=== PATIENT | male | born 1980 | race Caucasian/White ===

== ENCOUNTER 2017-07-17 10:24 | Inpatient (IN) | payer OTHER ==
[2017-07-17 10:52] VITALS: BMI 30.1
--- NOTE | 2017-07-17 12:41 | HP ---
CIWA Score - CIWA Score Nausea/Vomitin (QUEZZY STOMACH) Muscle Tremors: 4-Moderate,w/Arms Extend Anxiety: 5 Agitation: 4-Moderately Restless Paroxysmal Sweats: 1-Minimal Palms Moist Orientation: 0-Oriented Tacttile Disturbances: 0-None Auditory Disturbances: 0-None Visual Disturbances: 0-None Headache: 0-None Present CIWA-Ar Total Score: 17 Admission ROS BHS - HPI Chief Complaint: WITHDRAWAL SX FROM XANAX Allergies/Adverse Reactions: Allergies Allergy/AdvReac Type Severity Reaction Status Date / Time Penicillins Allergy Severe Difficulty Verified 07/17/17 12:07 Breathing History of Present Illness: 37 Y/O MALE WITH A HX OF XANAX AND MARIJUANA DEPENDENCE SEEKING DETOX TX. FIRST TIME HERE. PT IS ON [facility] Exam Limitations: No Limitations - Ebola screening Have you traveled outside of the country in the last 21 days: No Have you had contact with anyone from an Ebola affected area: No Have you been sick,other than usual withdrawal symptoms: No Do you have a fever: No - Review of Systems Constitutional: Chills, Night Sweats, Changes in sleep EENT: reports: Tearing, Nose Congestion, Dental Problems (MISSING TEETH) Respiratory: reports: No Symptoms reported Cardiac: reports: Palpitations (DUE TO ANXIETY/STRESS) GI: reports: Constipated, Diarrhea, Nausea, Poor Appetite, Vomiting, Indigestion : reports: No Symptoms Reported Musculoskeletal: reports: Back Pain, Joint Pain, Muscle Pain Integumentary: reports: No Symptoms Reported Neuro: reports: Headache, Tremors, Unsteady Gait Endocrine: reports: No Symptoms Reported Hematology: reports: No Symptoms Reported Psychiatric: reports: Orientated x3, Anxious, Depressed Other Systems: Reviewed and Negative Patient History - Patient Medical History Hx Anemia: No Hx Asthma: No Hx Chronic Obstructive Pulmonary Disease (COPD): No Hx Cardiac Disorders: Yes (HX ENDOCARDITIS 15 YEARS AGO) Hx Hypertension: No Hx Hypercholesterolemia: Yes (NO MEDICATION; EXERCISE AND DIET) Hx Seizures: No Hx Diabetes: No Hx Gastrointestinal Disorders: No Hx Genitourinary Disorders: No Hx Sexually Transmitted Disorders: No Hx Renal Disease (ESRD): No Hx Thyroid Disease: No Hx Human Immunodeficiency Virus (HIV): No (NEGATIVE HX) Hx Hepatitis C: Yes (HARVONI TREATMENT COMPLETED) Hx Depression: Yes Hx Suicide Attempt: Yes (Pt states he jumped from a bridge when he was 15; DENIES S/I TODAY) Hx Schizophrenia: No Other Medical History: HX ADHD/MDD - Patient Surgical History Past Surgical History: Yes Hx Orthopedic Surgery: Yes (R femur fx sx in 11/24 from a fall) Anesthesia Reaction: No - PPD History Previous Implant?: Yes Documented Results: Negative w/o proof Implanted On Prior R Admission?: No PPD to be Administered?: Yes - Reproductive History Patient is a Female of Child Bearing Age (11 -55 yrs old): No (MALE) - Smoking Cessation Smoking history: Current every day smoker Have you smoked in the past 12 months: Yes Aproximately how many cigarettes per day: 20 Hx Chewing Tobacco Use: No Initiated information on smoking cessation: Yes 'Breaking Loose' booklet given: 07/17/17 - Substance & Tx. History Hx Alcohol Use: No Hx Substance Use: Yes (XANAX/MARIJUANA) Substance Use Type: Marijuana, Tranquilizers Hx Substance Use Treatment: Yes - Substances Abused Alprazolam (Xanax) Route: Oral Frequency: Daily Amount used: 10 MG Age of first use: 29 Date of Last Use: 07/16/17 Marijuana/Hashish Route: Smoking Frequency: Daily Amount used: 1-2 JOINTS Age of first use: 14 Date of Last Use: 07/16/17 Family Disease History - Family Disease History Family Disease History: Diabetes: Grandparent (GF-HTN ALIVE AND 81 YRS OLD), Other: Grandparent, Father () Admission Physical Exam S - Vital Signs Vital Signs: Vital Signs - 24 hr 07/17/17 11:43 Temperature 96.7 F L Pulse Rate 74 Respiratory 18 Rate Blood Pressure 154/97 - Physical General Appearance: Yes: Moderate Distress, Irritable, Anxious HEENTM: Yes: EOMI, Normocephalic, SHANTELLE, Pharynx Normal Respiratory: Yes: Chest Non-Tender, Lungs Clear, Normal Breath Sounds, No Respiratory Distress Neck: Yes: No masses,lesions,Nodules, Supple, Trachea in good position Breast: Yes: Breast Exam Deferred Cardiology: Yes: Regular Rhythm, Regular Rate, S1, S2 Abdominal: Yes: Normal Bowel Sounds, Non Tender, Soft Genitourinary: Yes: Other (N/C) Back: Yes: Within Normal Limits Musculoskeletal: Yes: full range of Motion, Gait Steady Extremities: Yes: Normal Range of Motion, Non-Tender 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 NML intact, Fully Oriented, Alert, Motor Strength 5/5 Integumentary: Yes: Dry, Warm Lymphatic: Yes: Within Normal Limits - Diagnostic (1) Sedative, hypnotic or anxiolytic dependence with withdrawal, uncomplicated Current Visit: Yes Status: Acute (2) Methadone maintenance therapy patient Current Visit: Yes Status: Chronic (3) Nicotine dependence Current Visit: Yes Status: Acute Qualifiers: Nicotine product type: cigarettes Substance use status: in withdrawal Qualified Code(s): F17.213 - Nicotine dependence, cigarettes, with withdrawal (4) Hx of hepatitis C Current Visit: Yes Status: Resolved Comment: TREATED WITH ROBEL Cleared for Admission [facility] - Detox or Rehab [facility] Level of Care: Medically Managed Detox Regimen/Protocol: Valium [facility] Breath Alcohol Content Breath Alcohol Content: 0 Urine Drug Screen - Results Drug Screen Negative: No Urine Drug Screen Results: THC-Marijuana, BZO-Benzodiazepines, MTD-Methadone
[2017-07-17] MEDS ORDERED: NICOTINE POLACRILEX 4 MG GUM BUC PRN (12:52)
[2017-07-17] MEDS ORDERED: P-EPHED 60MG/TRIPROLIDI 2.5MG TABLET PO PRN (12:52)
[2017-07-17] MEDS ORDERED: IBUPROFEN 400 MG TABLET (FP) PO PRN (12:52)
[2017-07-17] MEDS ORDERED: MAGNESIUM HYDROX 2400MG/30ML ORAL SUSPENSION 30 ML CUP PO PRN (12:52)
[2017-07-17] MEDS ORDERED: MENTHOL/PHENOL 1 EACH UD MM PRN (12:52)
[2017-07-17] MEDS ORDERED: LOPERAMIDE HCL 2 MG CAPSULE PO PRN (12:52)
[2017-07-17] MEDS ORDERED: MAGNESIUM CITRATE 300 ML BOTTLE PO PRN (12:52)
[2017-07-17] MEDS ORDERED: MAG HYDROX/AL HYDROX/SIMETH 30 ML UNIT-DOSE CUP PO PRN (12:52)
[2017-07-17] MEDS ORDERED: guaiFENesin/D-METHORPHAN HB 10 ML UNIT-DOSE CUPS PO PRN (12:52)
[2017-07-17] MEDS ORDERED: ACETAMINOPHEN 325 MG TABLET (FP) PO PRN (12:52)
[2017-07-17] MEDS ORDERED: diazePAM 5 MG TABLET PO ONE (14:30)
[2017-07-17] MEDS: NICOTINE 21 MG/24 HOURS TOPICAL PATCH TD SCH (15:10)
[2017-07-17] MEDS: diazePAM 5 MG TABLET PO SCH ×2 (15:11→22:36)
--- NOTE | 2017-07-17 16:11 | CONSULT ---
[facility] Psychiatric Consult - Data Date of interview: 07/17/17 Admission source: [facility] Identifying data: First admission to [facility] for this 37 y/o male seeking detox treatment on for xanax,cannabis and opioid dependence.Patient is single without children,domiciled,unemployed and supported on SSI benefits. Substance Abuse History: Confirmed by patient in this interview.Details in current [facility] report : Smoking history: Current every day smoker. Have you smoked in the past 12 months: Yes. Aproximately how many cigarettes per day: 20. Hx Chewing Tobacco Use: No. Initiated information on smoking cessation: Yes. 'Breaking Loose' booklet given: 07/17/17. - Substance & Tx. History. Hx Alcohol Use: No. Hx Substance Use: Yes (XANAX/MARIJUANA). Substance Use Type: Marijuana, Tranquilizers. Hx Substance Use Treatment: Yes. - Substances Abused. Alprazolam (Xanax). Route: Oral. Frequency: Daily. Amount used: 10 MG. Age of first use: 29. Date of Last Use: 07/16/17. Marijuana/ Hashish. Route: Smoking. Frequency: Daily. Amount used: 1-2 JOINTS. Age of first use: 14. Date of Last Use: 07/16/17 Medical History: Hepatitis C,distant antecedent of endocarditis,dyslipidemia and history of orthosurgery for fracture of right femur (2017). Psychiatric History: Patient admits to numerous psychiatric hospitalizations ( mostly during adolescence).Last hospitalization was at the [facility] in [place],a few years ago.Mr Castano endorses the following diagnoses : Anxiety Disorder,MDD and ADHD.He is currently on methadone maintenance (140 mg /day) at [facility]) in [facility].Patient reports that he is prescribed xanax (but takes more than prescribed) by his primary care physician.Denies history of suicide attempts. Physical/Sexual Abuse/Trauma History: Patient denies. Additional Comment: Urine Drug Screen Results: THC-Marijuana, BZO- Benzodiazepines, MTD-Methadone.Noted. Mental Status Exam - Mental Status Exam Alert and Oriented to: Time, Place, Person Cognitive Function: Good Patient Appearance: Well Groomed (tattoos on neck + both hands + both forearms) Mood: Nervous, Withdrawn Affect: Mood Congruent Patient Behavior: Fatigued, Appropriate, Cooperative Speech Pattern: Clear, Appropriate Voice Loudness: Normal Thought Process: Intact, Goal Oriented Thought Disorder: Not Present Hallucinations: Denies Suicidal Ideation: Denies Homicidal Ideation: Denies Insight/Judgement: Poor Sleep: Poorly, Difficulty falling asleep Appetite: Good Muscle strength/Tone: Normal Gait/Station: Normal Psychiatric Findings - Problem List (Enochs 1, 2,3) (1) Opioid dependence on agonist therapy Current Visit: Yes Status: Acute (2) Sedative, hypnotic or anxiolytic dependence with withdrawal, uncomplicated Current Visit: Yes Status: Acute (3) Nicotine dependence Current Visit: Yes Status: Acute Qualifiers: Nicotine product type: cigarettes Substance use status: in withdrawal Qualified Code(s): F17.213 - Nicotine dependence, cigarettes, with withdrawal (4) Substance induced mood disorder Current Visit: Yes Status: Acute (5) Insomnia Current Visit: Yes Status: Acute - Initial Treatment Plan Initial Treatment Plan: Psychoeducation.Sleep hygiene principles revisited in this session.Detoxification in progress.Ambien 5 mg po hs prn.Patient is informed of risk of parasomnias (sleep-walking).Mr Castano has verbally consented to this careplan.Observation.
[2017-07-17] MEDS ORDERED: MELATONIN 5 MG TABLETS PO PRN (22:00)
[2017-07-17] MEDS: THIAMINE HCL 100 MG TABLET (FP) PO SCH (22:36)
[2017-07-17] MEDS: ZOLPIDEM TARTRATE 5 MG TABLET PO PRN (22:38)
[2017-07-17 23:09] LABS: URINE APPEARANCE TURBID; URINE BILIRUBIN NEGATIVE (<2.0 mg/dL); URINE BLOOD NEGATIVE (NEGATIVE); URINE COLOR AMBER; URINE GLUCOSE (UA) NEGATIVE (NEGATIVE); URINE KETONE NEGATIVE (NEGATIVE); URINE LEUK ESTERASE TRACE (NEGATIVE); URINE NITRITE NEGATIVE (NEGATIVE); URINE PROTEIN NEGATIVE (NEGATIVE)
[2017-07-17 23:17] LABS: EPI CELLS RARE /HPF (FEW); URINE HYALINE CAST 1 /lpf; URINE MUCUS MANY
[2017-07-18] MEDS ORDERED: METHADONE HCL 10 MG TABLET ONE (04:36)
[2017-07-18] MEDS ORDERED: METHADONE HCL 40 MG DISPERSABLE TABLET ONE (04:37)
[2017-07-18] MEDS: METHADONE 120 MG, METHADONE 20 MG PO SCH (05:26)
[2017-07-18] MEDS: diazePAM 5 MG TABLET PO SCH ×3 (05:26→22:14)
[2017-07-18] MEDS ORDERED: METHADONE HCL 10 MG TABLET PO SCH (06:00)
[2017-07-18] MEDS: PRENATAL VITAMINS W/ FOLIC ACID TABLET (FP) PO SCH (09:18)
[2017-07-18] MEDS: diazePAM 5 MG TABLET PO PRN ×2 (09:18→17:06)
[2017-07-18] MEDS: NICOTINE 21 MG/24 HOURS TOPICAL PATCH TD SCH (09:35)
--- NOTE | 2017-07-18 10:43 | EKG ---
Test Reason : Blood Pressure : / mmHG Vent. Rate : 054 BPM Atrial Rate : 054 BPM P-R Int : 180 ms QRS Dur : 092 ms QT Int : 466 ms P-R-T Axes : 041 067 042 degrees QTc Int : 441 ms SINUS BRADYCARDIA OTHERWISE NORMAL ECG NO PREVIOUS ECGS AVAILABLE Confirmed by MD Roman, Asad ([id number]) on 07/18/2017 10:42:56 AM Referred By: Confirmed By:Asad Owens MD
--- NOTE | 2017-07-18 10:56 | PN ---
[facility] CIWA - CIWA Score Nausea/Vomitin-No Nausea/No Vomiting Muscle Tremors: 4-Moderate,w/Arms Extend Anxiety: 4-Mod. Anxious/Guarded Agitation: 4-Moderately Restless Paroxysmal Sweats: 1-Minimal Palms Moist Orientation: 0-Oriented Tacttile Disturbances: 3-Moderate Itch/Numb/Burn Auditory Disturbances: 0-None Visual Disturbances: 0-None Headache: 0-None Present CIWA-Ar Total Score: 16 BHS Progress Note (SOAP) Subjective: ANXIETY, "SWEATS/CLAMMY SKIN", IRRITABILITY,FATIGUE. Objective: 07/18/17 10:54 Vital Signs Temperature 96.5 F L 07/18/17 09:38 Pulse Rate 76 07/18/17 09:38 Respiratory Rate 20 07/18/17 09:38 Blood Pressure 121/92 07/18/17 09:38 O2 Sat by Pulse Oximetry (%) Laboratory Last Values Urine Color Rebecca 07/17/17 15:00 Urine Appearance Turbid 07/17/17 15:00 Urine pH 6.0 (5.0-8.0) 07/17/17 15:00 Ur Specific [place] 1.021 (1.001-1.035) 07/17/17 15:00 Urine Protein Negative (NEGATIVE) 07/17/17 15:00 Urine Glucose (UA) Negative (NEGATIVE) 07/17/17 15:00 Urine Ketones Negative (NEGATIVE) 07/17/17 15:00 Urine Blood Negative (NEGATIVE) 07/17/17 15:00 Urine Nitrite Negative (NEGATIVE) 07/17/17 15:00 Urine Bilirubin Negative (<2.0 mg/dL) 07/17/17 15:00 Urine Urobilinogen 2.0 mg/dL (0.2-1.0) 07/17/17 15:00 Ur Leukocyte Esterase Trace (NEGATIVE) 07/17/17 15:00 Urine WBC (Auto) 1 /hpf (3-5) 07/17/17 15:00 Urine RBC (Auto) 2 /hpf (0-3) 07/17/17 15:00 Ur Epithelial Cells Rare /HPF (FEW) 07/17/17 15:00 Hyaline Casts 1 /lpf 07/17/17 15:00 Urine Mucus Many 07/17/17 15:00 OTHER LABS PENDING Assessment: 07/18/17 10:55 WITHDRAWAL SX Plan: CONTINUE DETOX INCREASE PO FLUIDS
[2017-07-18] MEDS: THIAMINE HCL 100 MG TABLET (FP) PO SCH (22:14)
[2017-07-18] MEDS: ZOLPIDEM TARTRATE 5 MG TABLET PO PRN (22:14)
[2017-07-19] MEDS ORDERED: METHADONE HCL 40 MG DISPERSABLE TABLET ONE (04:27)
[2017-07-19] MEDS ORDERED: METHADONE HCL 10 MG TABLET ONE (04:27)
[2017-07-19] MEDS: METHADONE 120 MG, METHADONE 20 MG PO SCH (05:30)
[2017-07-19] MEDS: diazePAM 5 MG TABLET PO PRN ×2 (05:30→18:20)
[2017-07-19] MEDS: PRENATAL VITAMINS W/ FOLIC ACID TABLET (FP) PO SCH (10:18)
[2017-07-19] MEDS: diazePAM 5 MG TABLET PO SCH ×2 (10:18→22:32)
[2017-07-19] MEDS: NICOTINE 21 MG/24 HOURS TOPICAL PATCH TD SCH (10:19)
--- NOTE | 2017-07-19 10:47 | PN ---
S CIWA - CIWA Score Nausea/Vomitin-No Nausea/No Vomiting Muscle Tremors: 4-Moderate,w/Arms Extend Anxiety: 4-Mod. Anxious/Guarded Agitation: 3 Paroxysmal Sweats: 1-Minimal Palms Moist Orientation: 0-Oriented Tacttile Disturbances: 0-None Auditory Disturbances: 0-None Visual Disturbances: 0-None Headache: 0-None Present CIWA-Ar Total Score: 12 BHS Progress Note (SOAP) Subjective: DECREASED ANXIETY,SWEATS,TREMORS. OOB AMBULATING ROUND THE PERIMETER OF THE UNIT THIS MORNING--EXERCISING. ALERT O X 3. Objective: 07/19/17 10:46 Vital Signs Temperature 97.4 F L 07/19/17 09:17 Pulse Rate 81 07/19/17 09:17 Respiratory Rate 18 07/19/17 09:17 Blood Pressure 118/83 07/19/17 09:17 O2 Sat by Pulse Oximetry (%) Laboratory Last Values Urine Color Rebecca 07/17/17 15:00 Urine Appearance Turbid 07/17/17 15:00 Urine pH 6.0 (5.0-8.0) 07/17/17 15:00 Ur Specific [place] 1.021 (1.001-1.035) 07/17/17 15:00 Urine Protein Negative (NEGATIVE) 07/17/17 15:00 Urine Glucose (UA) Negative (NEGATIVE) 07/17/17 15:00 Urine Ketones Negative (NEGATIVE) 07/17/17 15:00 Urine Blood Negative (NEGATIVE) 07/17/17 15:00 Urine Nitrite Negative (NEGATIVE) 07/17/17 15:00 Urine Bilirubin Negative (<2.0 mg/dL) 07/17/17 15:00 Urine Urobilinogen 2.0 mg/dL (0.2-1.0) 07/17/17 15:00 Ur Leukocyte Esterase Trace (NEGATIVE) 07/17/17 15:00 Urine WBC (Auto) 1 /hpf (3-5) 07/17/17 15:00 Urine RBC (Auto) 2 /hpf (0-3) 07/17/17 15:00 Ur Epithelial Cells Rare /HPF (FEW) 07/17/17 15:00 Hyaline Casts 1 /lpf 07/17/17 15:00 Urine Mucus Many 07/17/17 15:00 Assessment: 07/19/17 10:46 DECREASED W/S Plan: CONTINUE DETOX
[2017-07-19 10:55] LABS: HEMATOCRIT 42.1 % (35.4-49); HEMOGLOBIN 14.1 GM/dL (11.7-16.9); MCH 31.5 pg (25.7-33.7); MCHC 33.5 g/dl (32.0-35.9); MEAN CELL VOLUME 94.1 fl (80-96); MEAN PLT VOLUME 8.6 fl (7.5-11.1); PLATELET COUNT 275 K/MM3 (134-434); RBC 4.47 M/mm3 (4.00-5.60); RDW 14.2 % (11.9-15.9); WHITE BLOOD COUNT 7.7 K/mm3 (4.0-10.0)
[2017-07-19 11:07] LABS: CHLORIDE 102 mmol/L (98-107); SODIUM 139 mmol/L (136-145)
[2017-07-19 11:37] LABS: ALBUMIN 4.4 g/dl (3.4-5.0); ALK PHOS 142 U/L (45-117); ANION GAP 13 (8-16); BILIRUBIN,TOTAL 0.4 mg/dL (0.2-1.0); BLOOD UREA NITROGEN 8 mg/dL (7-18); CALCIUM 9.4 mg/dL (8.5-10.1); CO2 24 mmol/L (21-32); CREATININE 0.8 mg/dL (0.7-1.3); GLUCOSE,RANDOM 90 mg/dL (74-106); SGPT/ALT 18 U/L (12-78); TOT PROT 7.8 g/dl (6.4-8.2)
[2017-07-19 11:53] LABS: SGOT/AST 30 U/L (15-37)
[2017-07-19 11:54] LABS: POTASSIUM 4.4 mmol/L (3.5-5.1)
[2017-07-19] MEDS: THIAMINE HCL 100 MG TABLET (FP) PO SCH (22:30)
[2017-07-19] MEDS: ZOLPIDEM TARTRATE 5 MG TABLET PO PRN (22:31)
[2017-07-20] MEDS ORDERED: METHADONE HCL 10 MG TABLET ONE (04:13)
[2017-07-20] MEDS ORDERED: METHADONE HCL 40 MG DISPERSABLE TABLET ONE (04:14)
[2017-07-20] MEDS: METHADONE 120 MG, METHADONE 20 MG PO SCH (05:23)
[2017-07-20] MEDS: diazePAM 5 MG TABLET PO PRN (05:23)
[2017-07-20 09:07] VITALS: BP 131/95; PULSE 85; TEMP 97.7
--- NOTE | 2017-07-20 19:35 | PN ---
BHS Progress Note (SOAP) Subjective: Patient denies current detox symptoms and reports that he feels well overall. Objective: PATIENT A & O X 3, OBSERVED AMBULATING ON UNIT. NO ACUTE DISTRESS. 07/20/17 19:34 Vital Signs Temperature 97.7 F 07/20/17 09:06 Pulse Rate 85 07/20/17 09:06 Respiratory Rate 18 07/20/17 09:06 Blood Pressure 131/95 07/20/17 09:06 O2 Sat by Pulse Oximetry (%) Laboratory Tests 07/17/17 07/18/17 07/19/17 15:00 07:00 07:00 WBC 7.7 RBC 4.47 Hgb 14.1 Hct 42.1 MCV 94.1 MCH 31.5 MCHC 33.5 RDW 14.2 Plt Count 275 MPV 8.6 Sodium Potassium Chloride Carbon Dioxide Anion Gap BUN Creatinine Creat Clearance w eGFR Random Glucose Calcium Total Bilirubin AST ALT Alkaline Phosphatase Total Protein Albumin Urine Color Rebecca Urine Appearance Turbid Urine pH 6.0 Ur Specific [place] 1.021 Urine Protein Negative Urine Glucose (UA) Negative Urine Ketones Negative Urine Blood Negative Urine Nitrite Negative Urine Bilirubin Negative Urine Urobilinogen 2.0 Ur Leukocyte Esterase Trace Urine WBC (Auto) 1 Urine RBC (Auto) 2 Ur Epithelial Cells Rare Hyaline Casts 1 Urine Mucus Many RPR Titer HIV 1&2 Antibody Screen Negative HIV P24 Antigen Negative 07/19/17 07/19/17 07:00 07:00 WBC RBC Hgb Hct MCV MCH MCHC RDW Plt Count MPV Sodium 139 Potassium 4.4 Chloride 102 Carbon Dioxide 24 Anion Gap 13 BUN 8 Creatinine 0.8 Creat Clearance w eGFR > 60 Random Glucose 90 Calcium 9.4 Total Bilirubin 0.4 AST 30 ALT 18 Alkaline Phosphatase 142 H Total Protein 7.8 Albumin 4.4 Urine Color Urine Appearance Urine pH Ur Specific [place] Urine Protein Urine Glucose (UA) Urine Ketones Urine Blood Urine Nitrite Urine Bilirubin Urine Urobilinogen Ur Leukocyte Esterase Urine WBC (Auto) Urine RBC (Auto) Ur Epithelial Cells Hyaline Casts Urine Mucus RPR Titer Nonreactive HIV 1&2 Antibody Screen HIV P24 Antigen labs noted. Assessment: 07/20/17 19:35 COMPLETION OF DETOX REGIMEN. Plan: PATIENT SCHEDULED FOR DISCHARGE FROM DETOX TODAY.
--- NOTE | 2017-07-20 19:41 | DS ---
[facility] Detox Discharge Summary Admission Date: 07/17/17 Discharge Date: 07/20/17 - History Present History: Opioid Dependence, Sedative Dependence, MMTP Additional Comments: PATIENT DENIES CURRENT DETOX SYMPTOMS AND REPORTS THAT HE IS FEELING WELL OVERALL AT TIME OF DISCHARGE FROM DETOX. PATIENT RETURNING TO [facility] ([place], [place]) FOR AFTERCARE. PATIENT WAS DISCHARGED FROM DETOX UNIT IN STABLE MEDICAL CONDITION. Pertinent Past History: MMTP, Nicotine Dependence, Hep C, Insomnia. - Physical Exam Results Vital Signs: Vital Signs Temperature 97.7 F 07/20/17 09:06 Pulse Rate 85 07/20/17 09:06 Respiratory Rate 18 07/20/17 09:06 Blood Pressure 131/95 07/20/17 09:06 O2 Sat by Pulse Oximetry (%) Pertinent Admission Physical Exam Findings: WITHDRAWAL SYMPTOMS. Laboratory Tests 07/17/17 07/18/17 07/19/17 15:00 07:00 07:00 WBC 7.7 RBC 4.47 Hgb 14.1 Hct 42.1 MCV 94.1 MCH 31.5 MCHC 33.5 RDW 14.2 Plt Count 275 MPV 8.6 Sodium Potassium Chloride Carbon Dioxide Anion Gap BUN Creatinine Creat Clearance w eGFR Random Glucose Calcium Total Bilirubin AST ALT Alkaline Phosphatase Total Protein Albumin Urine Color Rebecca Urine Appearance Turbid Urine pH 6.0 Ur Specific [place] 1.021 Urine Protein Negative Urine Glucose (UA) Negative Urine Ketones Negative Urine Blood Negative Urine Nitrite Negative Urine Bilirubin Negative Urine Urobilinogen 2.0 Ur Leukocyte Esterase Trace Urine WBC (Auto) 1 Urine RBC (Auto) 2 Ur Epithelial Cells Rare Hyaline Casts 1 Urine Mucus Many RPR Titer HIV 1&2 Antibody Screen Negative HIV P24 Antigen Negative 07/19/17 07/19/17 07:00 07:00 WBC RBC Hgb Hct MCV MCH MCHC RDW Plt Count MPV Sodium 139 Potassium 4.4 Chloride 102 Carbon Dioxide 24 Anion Gap 13 BUN 8 Creatinine 0.8 Creat Clearance w eGFR > 60 Random Glucose 90 Calcium 9.4 Total Bilirubin 0.4 AST 30 ALT 18 Alkaline Phosphatase 142 H Total Protein 7.8 Albumin 4.4 Urine Color Urine Appearance Urine pH Ur Specific [place] Urine Protein Urine Glucose (UA) Urine Ketones Urine Blood Urine Nitrite Urine Bilirubin Urine Urobilinogen Ur Leukocyte Esterase Urine WBC (Auto) Urine RBC (Auto) Ur Epithelial Cells Hyaline Casts Urine Mucus RPR Titer Nonreactive HIV 1&2 Antibody Screen HIV P24 Antigen LABS NOTED. - Treatment Hospital Course: Detox Protocol Followed, Detoxed Safely, Responded well, Discharged Condition Good Patient has Accepted a Rehab Referral to: PT. RETURNING TO [facility] ([place] - Medication Discharge Medications: Ambulatory Orders NK [No Known Home Medication] 07/17/17 - Diagnosis (1) Insomnia Status: Acute Qualifiers: Insomnia type: unspecified Qualified Code(s): G47.00 - Insomnia, unspecified (2) Opioid dependence on agonist therapy Status: Chronic (3) Sedative, hypnotic or anxiolytic dependence with withdrawal, uncomplicated Status: Acute (4) Substance induced mood disorder Status: Acute (5) Methadone maintenance therapy patient Status: Chronic (6) Hx of hepatitis C Status: Resolved (7) Nicotine dependence Status: Acute Qualifiers: Nicotine product type: cigarettes Substance use status: in withdrawal Qualified Code(s): F17.213 - Nicotine dependence, cigarettes, with withdrawal - AMA Did Patient Leave Against Medical Advice: No
[2017-07-21] MEDS ORDERED: diazePAM 5 MG TABLET PO SCH (10:00)
== END 2017-07-20 09:55 | disposition home or self-care (01) | DRG 773 ==
LOC: YASAS 10:24 → Y3N 14:21
PROVIDERS: ADMIT Internal Medicine; ATTEND Internal Medicine
PROC: HZ2ZZZZ Detoxification Services for Substance Abuse Treatment (ICD-10-PCS; principal; 2017-07-17)
DX: F11.20 Opioid dependence, uncomplicated (principal); F13.230 Sedative, hypnotic or anxiolytic dependence with withdrawal, uncomplicated; F17.210 Nicotine dependence, cigarettes, uncomplicated; F19.24 Other psychoactive substance dependence with psychoactive substance-induced mood disorder; G47.00 Insomnia, unspecified; B18.2 Chronic viral hepatitis C
CPT/HCPCS: 36415; 80053; 81003; 81015; 85027; 86593; 87389; 93005; 93010